=== PATIENT | female | born 1940 | race Caucasian/White ===

== ENCOUNTER 2018-02-22 10:03 | Emergency (ER) | payer MEDICARE, OTHER ==
[~2018-02-22] VITALS: Ht 162.6 cm; Wt 79.4 kg
[~2018-02-22 10:03] MED LIST: ASPIRIN EC325 MG PO; ATENOLOL25 MG PO; BENICAR40 MG PO; CITRACAL-VIT D1 EACH PO; CRESTOR5 MG PO; HYDROCODON-ACE1 EA10 PO; IBUPROFEN200 MG PO
[2018-02-22] MEDS ORDERED: CARBIDOPA-LEVO1 EAC1 PO (10:21)
[2018-02-22] MEDS ORDERED: ATENOLOL50 MG PO (13:44)
[2018-02-22] MEDS ORDERED: ROBAXIN-750750 MG PO (13:44)
== END 2018-02-22 16:31 | disposition home or self-care (01) ==
LOC: ED 10:03
PROC: 0T9B70Z Drainage of Bladder with Drainage Device, Via Natural or Artificial Opening (ICD-10-PCS; principal; 2018-02-22)
DX: S39.012A Strain of muscle, fascia and tendon of lower back, initial encounter (principal); Z88.2 Allergy status to sulfonamides; Z79.899 Other long term (current) drug therapy; Z79.82 Long term (current) use of aspirin; X50.9XXA Other and unspecified overexertion or strenuous movements or postures, initial encounter
CPT/HCPCS: 51701; 72100; 80053; 81001; 85025; 99284

== ENCOUNTER → 2022-10-23 | Emergency (ER) | payer MEDICARE, OTHER ==
[~2022-10-23] VITALS: Ht 162.6 cm; Wt 72.6 kg
[~2022-10-23] MED LIST changes: +ALENDRONATE SOD70 MG PO; +ATENOLOL50 MG PO; +BUSPIRONE HCL7.5 MG PO; +CARBIDOPA-LEVO1 EAC1 PO; +CITALOPRAM HBR20 MG PO; +FUROSEMIDE20 MG PO; +METOPROLOL SUCC25 MG PO; +NYSTOP60 GM TOP; +POTASSIUM CHLOR8 ME1 PO; +RIVASTIGMINE1.5 MG PO; +ROBAXIN-750750 MG PO
--- OUTSIDE RECORDS SUMMARY | 2022-10-23 22:35 | XMS ---
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 Martha has no Care Guidelines for this patient. Suzanne VISIT COUNT (12 MO.) 1 NATACHA [place] TOTAL 1 NOTE: Visits indicate total known visits. ED/C VISIT TRACKING (12 MO.) 10/23/2022 22:27 NATACHA Salgado OR TYPE: Emergency COMPLAINT: - CONFUSION INPATIENT VISIT TRACKING (12 MO.) No inpatient visits to display in this time frame [email or web address]
== END ==
LOC: ED 22:27
PROC: 0T9B70Z Drainage of Bladder with Drainage Device, Via Natural or Artificial Opening (ICD-10-PCS; principal; 2022-10-23)
DX: R41.82 Altered mental status, unspecified (principal); G20 Parkinson's disease; Z88.2 Allergy status to sulfonamides; Z79.899 Other long term (current) drug therapy
CPT/HCPCS: 36415; 51701; 70450; 71045; 80053; 81003; 85025; 99285-25; J7030